=== PATIENT | female | born 1995 | race Caucasian/White ===

== ENCOUNTER 2017-04-27 07:14 | Emergency (ER) | payer OTHER ==
[~2017-04-27] VITALS: Ht 154.9 cm; Wt 65.0 kg
[2017-04-27 07:16] VITALS: Ht 154.9 cm; Wt 65.0 kg
[2017-04-27 07:58] LABS: URINE BLOOD (Dip) POC Negative (NEGATIVE)
[2017-04-27] MEDS ORDERED: ACETAMINOPHEN 325 MG TAB PO ONE (08:00)
--- NOTE | 2017-04-27 09:12 | RADRPT ---
PROCEDURE: Left hand series CLINICAL INDICATION: Left hand pain TECHNIQUE: Three views of the left hand were obtained. COMPARISON: No prior studies are available for comparison. FINDINGS: There is normal mineralization and alignment of the bones of the left hand. There is no evidence of acute fracture or dislocation. Joint spaces are well maintained. There is no evidence of osteophy te formation or erosions. The soft tissues are within normal limits. IMPRESSION: 1. Unremarkable left hand series. RPTAT: AA .Aaron Hook MD, MD Date Time Electronically viewed and signed by .Aaron Hook MD, MD on 04/27/2017 09:12 .B/
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
--- NOTE | 2017-04-27 09:23 | RADRPT ---
PROCEDURE: XR ribs . CLINICAL INDICATION: pain TECHNIQUE: AP and oblique views of the left ribs were obtained. COMPARISON: None FINDINGS: The bone mineralization is normal. There is no acute fracture or subluxation. The soft tissues are unremarkable. RPTAT: AA IMPRESSION: No acute fracture. .Alex Wilson MD, Date Time Electronically viewed and signed by .Alex Wilson MD, on 04/27/2017 09:23 .S/
[2017-04-27] MEDS ORDERED: IBUP-1542 PO (09:56)
[2017-04-27] MEDS ORDERED: CYCL-319 PO (09:56)
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
== END 2017-04-27 10:06 | disposition home or self-care (01) ==
LOC: FTE 07:14
DX: S19.9XXA Unspecified injury of neck, initial encounter (principal); S49.92XA Unspecified injury of left shoulder and upper arm, initial encounter; S29.9XXA Unspecified injury of thorax, initial encounter; S59.902A Unspecified injury of left elbow, initial encounter; S69.92XA Unspecified injury of left wrist, hand and finger(s), initial encounter; R40.4 Transient alteration of awareness; V49.40XA Driver injured in collision with unspecified motor vehicles in traffic accident, initial encounter
CPT/HCPCS: 70450; 71010; 71100; 72040; 73030; 81003